=== PATIENT | male | born 1960 | race Caucasian/White ===

== ENCOUNTER 2024-07-10 06:20 | Emergency (ER) | payer OTHER, SELFPAY ==
[2024-07-10 06:24] VITALS: BP 154/87
[2024-07-10 06:49] LABS: % Basophils 0.6 % (0-2); % Eosinophils 2.1 % (0-6); % Immature Granulocytes 0.3 % (0-0.5); % Lymphocytes 16.9 % (20.5-51.1); % Monocytes 11.1 % (1.7-9.3); Absolute Eosinophils 0.1 10^3/uL (0-0.7); Absolute Lymphocytes 1.1 10^3/uL (1.2-3.4); Absolute Monocytes 0.8 10^3/uL (0.1-0.6); Absolute Neutrophils 4.6 10^3/uL (1.4-6.5); Hematocrit 40.7 % (39.0-52.0); Hemoglobin 13.8 g/dL (13.0-18.0); Mean Corp Hgb Conc. 33.9 g/dL (33.0-37.0); Mean Corpuscular Hgb 29.4 pg (27.0-31.0); Mean Corpuscular Volume 86.6 fL (80.0-94.0); Nucleated Red Blood Cells % 0 % (-); Platelet Count 143 10^3/uL (130-400); Red Cell Dist. Width 13.2 % (11.5-14.5); White Blood Cell Count 6.7 10^3/uL (4.8-10.8)
[2024-07-10 07:05] LABS: ALT (SGPT) 26 U/L (0-50); AST (SGOT) 32 U/L (17-59); Albumin 4.4 g/dl (3.5-5.0); Alkaline Phosphatase 65 U/L (38-126); Blood Urea Nitrogen 11 mg/dl (9-20); Calcium 9.4 mg/dl (8.4-10.2); Carbon Dioxide 26 mmol/L (22-30); Chloride 99 mmol/L (98-107); Glucose 119 mg/dl (70-99); Potassium 5.5 mmol/L (3.5-5.1); Sodium 132 mmol/L (135-145); Total Bilirubin 1.8 mg/dl (0.2-1.3); Total Protein 7.2 g/dl (6.3-8.2); eGFR > 60.00
[2024-07-10 07:10] LABS: Troponin I < 0.012 ng/ml
[2024-07-10 08:01] VITALS: BP 155/77
[2024-07-10 08:08] VITALS: BMI 25.7
--- NOTE | 2024-07-10 08:29 | ED.GENMED ---
History of Present Illness
General
Chief Complaint: Heart Rate Problem
Time Seen by Provider: 07/10/24 07:40
History of Present Illness
History of Present Illness:
63-year-old male with history of CAD, [place] in 2019 with LETICIA x 3 to the RCA presents to the emergency department for evaluation of intermittent heart palpitations for the past several weeks. He describes having a sensation of brief palpitations
associated with dizziness, no syncope/presyncope. These occur on a weekly/biweekly basis. He is also concerned because his heart rate seem to be higher than normal during his treadmill exercise this morning however he had no chest pain or
shortness of breath during this time. Overall has had no symptoms consistent with his prior angina. Has cardiology follow-up scheduled in about 6 weeks
Past History
Past History
ED Past Medical History: Other (Peptic ulcer disease) and Other (Irritable bowel syndrome, GI bleed)
ED Past Surgical History: None
Social History
Tobacco: Non-smoker
Alcohol: None
Personal: ( lives in [facility] due to work)
Employment: Employed (Works at a bank)
Review of Systems
Review of Systems
Allergies reviewed?: Yes
All Other Systems: ROS reviewed and negative except as documented in HPI and ROS
Phy Exam
Physical Exam
Physical Exam:
GEN: Well appearing, NAD, WDWN
HEENT: Oral mucosa moist, no scleral icterus
Cardiac: Regular rate and rhythm, no murmurs
Lung: No respiratory distress, no tachypnea
MSK: No gross deformity or injuries
Skin: Good color, no pallor or jaundice, no rashes
Neuro: AO x3, moves all extremities freely
Psych: Calm, cooperative
Course
Orders/Labs/Results
Orders:
Orders
07/10/24 06:27
Electrocardiogram (*1) Urgent
Reason for Study: Chest Pain
Cardiac Monitoring- Treatment ONCE
EKG- Treatment ONCE
IV Insert/Care/Rem.- Treatment PRN
O2 Therapy [RESP] Urgent
Titrate/Wean O2 to maintain O2 sat greater than (%): 90
Special Instructions: Maintain sats >/=90%
Pulse Ox/spot Check [RESP] Urgent
Quantity: 1
Special Instructions: ON ROOM AIR
07/10/24 06:36
Complete Blood Count/With Diff Urgent
Comprehensive Metabolic Panel Urgent
Troponin I Urgent
Abnormal Lab Results
07/10/24
06:36
MPV 11.0 H fL
(7.4-10.4)
Absolute Lymphs (auto) 1.1 L 10^3/uL
(1.2-3.4)
Absolute Monos (auto) 0.8 H 10^3/uL
(0.1-0.6)
Lymphocytes % 16.9 L %
(20.5-51.1)
Monocytes % 11.1 H %
(1.7-9.3)
Sodium 132 L mmol/L
(135-145)
Potassium 5.5 H mmol/L
(3.5-5.1)
Creatinine 0.6 L mg/dL
(0.7-1.3)
Glucose 119 H mg/dl
(70-99)
Total Bilirubin 1.8 H mg/dl
(0.2-1.3)
07/10/24 06:36
07/10/24 06:36
Vital Signs
Initial and Last Documented VS:
Initial Vital Signs
Temp Pulse Resp BP Pulse Ox
97.8 F 83 19 154/87 98
07/10/24 06:24 07/10/24 06:24 07/10/24 06:24 07/10/24 06:24 07/10/24 06:24
Last Documented Vital Signs
Temp Pulse Resp BP Pulse Ox
98.4 F 63 16 129/76 98
07/10/24 09:15 07/10/24 09:15 07/10/24 09:15 07/10/24 09:15 07/10/24 09:15
MDM/Problems Addressed
MDM/Problems Addressed:
Patient's symptoms are not concerning for angina at this time. His heart rate was only minimally elevated during his exercise today. Will refer him to his coin machine supervisor for a Holter monitor
*Critical Care Note
Total Time (30-74mins, 75-104mins- exclusive of procedures): Not Applicable
ED Attending Note
-
Portions of this chart may have been created with voice recognition software.� Occasional wrong word or��sound alike� substitutions may have occurred due to the inherent limitations of voice recognition software.
Discharge Plan
Departure
Patient Disposition: Home (Routine Discharge)
Date of Disposition: 07/10/24
Time of Disposition: 08:51
Patient with high blood pressure during this ER visit?: No
Discharge Problem:
Heart palpitations
Instructions: Palpitations (DC)
Prescriptions:
No Action
fluticasone propionate 16 GRAM spray,suspension
1 spray intranasal DAILY Qty: 1 1RF
fexofenadine-pseudoephedrine [Valentine-D 24 Hour] 1 EACH tablet extended release 24 hr
1 ea PO QPM
atorvastatin 80 MG tablet
80 mg PO QPM Qty: 90 5RF
aspirin 81 MG tablet,delayed release (DR/EC)
81 mg PO DAILY Qty: 100 5RF
pantoprazole 40 MG tablet,delayed release (DR/EC)
40 mg PO DAILY Qty: 90 5RF
ticagrelor [Brilinta] 90 MG tablet
90 mg PO BID Qty: 90 4RF
metoprolol succinate 25 MG tablet extended release 24 hr
25 mg PO HS 90 Days Qty: 90 4RF
Referrals:
Iman Downey DO [Family Provider] -
Esequiel Gao MD [Active] -
Activity Restrictions/Additional Instructions:
Call the coin machine supervisor office on Saturday to discuss a Holter monitor
Interventions
Interventions:
*Risk Screen - Suicide Last Done: 07/10/24 06:24
*General Assessment Last Done: 07/10/24 08:08
*Neglect/Abuse Screening Last Done: 07/10/24 06:24
ED- Fall Risk Assessment Last Done: 07/10/24 08:08
*ED COVID-19 Vaccine History Last Done: 07/10/24 08:10
*Nursing Disposition Last Done: 07/10/24 09:15
ED- Cardiac Assessment Last Done: 07/10/24 08:08
ED- Pulmonary Assessment Last Done: 07/10/24 08:08
Discharge Date and Time
Discharge Date/Time: 07/10/24 09:25
Print Language: ROMANSH
[2024-07-10 09:15] VITALS: BP 129/76
--- NOTE | 2024-07-10 09:20 | EDRN ---
Discharge instructions given to patient by Chris Ryan PA-C.
== END 2024-07-10 09:25 | disposition home or self-care (01) ==
LOC: EMR 06:20
PROVIDERS: EMERGENCY PHYSICIAN Emergency Medicine; FAMILY PHYSICIAN Family Medicine
DX: R00.2 Palpitations (principal); I25.10 Atherosclerotic heart disease of native coronary artery without angina pectoris; I25.2 Old myocardial infarction; K58.9 Irritable bowel syndrome, unspecified; Z95.5 Presence of coronary angioplasty implant and graft
CPT/HCPCS: 99283; 80053; 84484; 85025; 93005

== ENCOUNTER → 2025-01-01 07:30 | Outpatient (REF) | payer OTHER, SELFPAY ==
[2025-01-01 08:28] LABS: Hematocrit 38.8 % (39.0-52.0); Hemoglobin 13.0 g/dL (13.0-18.0); Mean Corp Hgb Conc. 33.5 g/dL (33.0-37.0); Mean Corpuscular Volume 89.8 fL (80.0-94.0); Nucleated Red Blood Cells % 0 % (-); Platelet Count 122 10^3/uL (130-400); Red Cell Dist. Width 12.7 % (11.5-14.5)
[2025-01-01 09:07] LABS: ALT (SGPT) 18 U/L (0-50); AST (SGOT) 23 U/L (17-59); Albumin 4.5 g/dl (3.5-5.0); Alkaline Phosphatase 48 U/L (38-126); Blood Urea Nitrogen 8 mg/dl (9-20); Calcium 9.8 mg/dl (8.4-10.2); Carbon Dioxide 29 mmol/L (22-30); Chloride 101 mmol/L (98-107); Glucose 94 mg/dl (70-99); HDL Cholesterol 52 mg/dl; LDL Cholesterol, Calculated 54 mg/dl; Potassium 4.8 mmol/L (3.5-5.1); Sodium 135 mmol/L (135-145); Total Protein 7.1 g/dl (6.3-8.2); Very Low Density Lipoprotein 9 mg/dl (0-30); eGFR > 60.00
[2025-01-03 11:01] LABS: Lipoprotein a (Lp a) 51 mg/dL (<=29)
== END ==
LOC: REG 07:30
PROVIDERS: ATTENDING PHYSICIAN Student in an Organized Health Care Education/Training Program; FAMILY PHYSICIAN Family Medicine
DX: I25.10 Atherosclerotic heart disease of native coronary artery without angina pectoris (principal); S20.362A Insect bite (nonvenomous) of left front wall of thorax, initial encounter; W57.XXXA Bitten or stung by nonvenomous insect and other nonvenomous arthropods, initial encounter; Z12.5 Encounter for screening for malignant neoplasm of prostate; I10 Essential (primary) hypertension; E78.49 Other hyperlipidemia
CPT/HCPCS: 36415; 80053; 80061; 83695; 84153; 84154; 84443; 85025; 86618